=== PATIENT | female | born 1955 | race African-American/Black ===

== ENCOUNTER 2018-08-05 07:46 | Inpatient (IN) | payer MEDICARE, MEDICAID ==
[~2018-08-05] VITALS: Ht 152.4 cm; Wt 60.0 kg
[~2018-08-05 07:46] MED LIST: DONE10TA6 PO; GABA800T2 PO; HYDR-565 PO
[2018-08-05] MEDS ORDERED: normal saline 1000ML IV soln IVB ONE ×2 (07:55→09:10)
[2018-08-05] MEDS ORDERED: ondansetron/PF 4mg/2ml inj IV ONE (07:55)
[2018-08-05] MEDS: morphine 4 MG/ML inj SYRINge IV PRN ×3 (08:19→12:24)
[2018-08-05 09:04] LABS: ALANINE AMINOTRANSFERASE 65 U/L (12-78); ALBUMIN 4.3 G/DL (3.4-5.0); ALBUMIN/GLOBULIN RATIO 1.1 (1.1-1.5); ALKALINE PHOSPHATASE 96 IU/L (46-116); ANION GAP 17 (8-16); ASPARTATE AMINO TRANSFERASE 76 U/L (10-37); BILIRUBIN,TOTAL 0.6 MG/DL (0.1-1.0); BLOOD UREA NITROGEN 6 MG/DL (7-18); BUN/CREATININE RATIO 7.6 (6.6-38.0); CALCIUM 9.2 MG/DL (8.5-10.1); CHLORIDE 103 MMOL/L (99-107); CREATININE 0.79 MG/DL (0.40-0.90); GLUCOSE 175 MG/DL (70-104); LIPASE 137 U/L (73-393); POTASSIUM 3.1 MMOL/L (3.5-5.1); SODIUM 142 MMOL/L (135-145); TOTAL CARBON DIOXIDE 22.3 MMOL/L (24-32); TOTAL PROTEIN 8.3 G/DL (6.4-8.2); eGFR 89 ML/MIN
[2018-08-05] MEDS ORDERED: enoxaparin 100mg/ml syringe SUBCUT ONE (09:20)
[2018-08-05 09:36] LABS: BASOPHILS # (AUTO) 0.1 X10'3 (0-0.2); BASOPHILS % (AUTO) 1.1 % (0-1); EOSINOPHILS # (AUTO) 0.1 X10'3 (0-0.9); EOSINOPHILS % (AUTO) 1.1 % (0-6); HEMATOCRIT 49.4 % (35.0-45.0); HEMOGLOBIN 16.8 g/dl (12.0-16.0); LYMPHOCYTES # (AUTO) 2.7 X10'3 (1.1-4.8); LYMPHOCYTES % (AUTO) 41.4 % (21-51); MEAN CORPUSCULAR VOLUME 85.4 FL (78-98); MEAN PLATELET VOLUME 8.2 FL (7.4-10.4); MONOCYTES # (AUTO) 0.5 X10'3 (0-0.9); NEUTROPHILS # (AUTO) 3.2 X10'3 (1.8-7.7); NEUTROPHILS % (AUTO) 48.4 % (42-75); PLATELET COUNT 224 X10'3 (140-440); RED BLOOD COUNT 5.79 X10'6 (4.20-5.60); RED CELL DISTRIBUTION WIDTH 17.5 % (11.5-14.5); WHITE BLOOD COUNT 6.6 X10'3 (4.5-11.0)
[2018-08-05 09:39] LABS: D-DIMER 0.67 MG/L FEU (0-0.50); PROTHROMBIN TIME 9.9 SECONDS (9.0-12.0)
[2018-08-05] MEDS ORDERED: iohexol 350MG/ML 100ml bottle IV ONE (09:46)
[2018-08-05 09:53] LABS: TROPONIN I 0.12 NG/ML (0.0-0.05)
[2018-08-05 10:19] LABS: CLARITY,URINE CLEAR (Clear); COLOR,URINE YELLOW (Yellow); GLUCOSE, URINE NEGATIVE (Neg); KETONES,URINE TRACE mg/dl (Neg); LEUKOCYTE ESTERASE ,URINE NEGATIVE (Neg); NITRITES, URINE NEGATIVE (Neg); OCCULT BLOOD,URINE SMALL (Neg); PROTEIN,URINE 100 mg/dl (Neg); UROBILINOGEN,URINE 0.2 E.U/dL (0.2-1.0)
[2018-08-05 10:34] LABS: UA COLLECTION TYPE STRAIGHT CATH
[2018-08-05 10:49] LABS: SQUAMOUS EPITHELIAL CELL,UR MODERATE /LPF (FEW)
[2018-08-05 10:51] LABS: BACTERIA,URINE FEW /HPF (Neg); RBC,URINE 0-2 /HPF (0-2); WBC,URINE 0-4 /HPF (0-4)
[2018-08-05] MEDS ORDERED: ondansetron/PF 4mg/2ml inj IV STA (10:52)
[2018-08-05] MEDS ORDERED: metoprolol tartrate 1mg/ml inj IV ONE (11:15)
[2018-08-05] MEDS ORDERED: metoclopramide 5 mg/ml inj IV ONE (11:50)
[2018-08-05] MEDS ORDERED: diphenhydrAMINE 50 mg/ml inj IV ONE (11:50)
[2018-08-05] MEDS ORDERED: magnesium hydroxide 30ml (MOM) UD suspension PO PRN (12:05)
[2018-08-05] MEDS ORDERED: acetaminophen 325mg tablet PO PRN (12:05)
[2018-08-05] MEDS ORDERED: mag hydrox/Alum hydrox/simeth 30ml oral suspension PO PRN (12:05)
[2018-08-05] MEDS ORDERED: MEMA5TAB PO (12:14)
[2018-08-05] MEDS ORDERED: CLOP75TA35 PO (12:15)
[2018-08-05] MEDS ORDERED: ATOR20TA PO (12:16)
[2018-08-05] MEDS ORDERED: DULO-31 PO (12:17)
[2018-08-05] MEDS ORDERED: DONE10TA6 PO (12:17)
[2018-08-05] MEDS ORDERED: KEP500T PO (12:19)
[2018-08-05] MEDS ORDERED: LEVO50TA PO (12:20)
[2018-08-05] MEDS ORDERED: INSU100V5 IJ (12:26)
[2018-08-05] MEDS: hydrALAZINE 20mg/ml inj. IV PRN (12:26)
[2018-08-05] MEDS: cefepime 2g/NS 100ml ADVANTAGE 100 ML IV SCH ×2 (12:31→20:47)
[2018-08-05 13:10] LABS: URINE AMPHETAMINE SCREEN NEGATIVE (Neg); URINE BARBITUATE SCREEN NEGATIVE (Neg); URINE BENZODIAZEPINES SCREEN NEGATIVE (Neg); URINE CANNABINOID SCREEN NEGATIVE (Neg); URINE COCAINE SCREEN NEGATIVE (Neg); URINE METHADONE SCREEN NEGATIVE (Neg); URINE OPIATE SCREEN POSITIVE (Neg); URINE PHENCYCLIDINE SCREEN NEGATIVE (Neg)
[2018-08-05 14:00] VITALS: BP 136/74
[2018-08-05] MEDS: potassium Cl 20mEq in NS 1,000 ML IV SCH ×2 (14:02→22:05)
[2018-08-05] MEDS: morphine 2 MG/ML inj. syringe IV PRN (14:12)
[2018-08-05 15:00] VITALS: BP 181/66
[2018-08-05] MEDS ORDERED: dextrose 50%-water 50ml dispensing syringe IV PRN ×2 (18:40)
[2018-08-05] MEDS ORDERED: insulin Lispro (HumaLOG) vial - multi-dose SQ SCH (18:40)
[2018-08-05] MEDS ORDERED: glucagon, human recombinant 1mg kit SUBCUT PRN (18:40)
[2018-08-05] MEDS ORDERED: MESSAGE TO PHARMACY PO ONE (18:40)
[2018-08-05] MEDS ORDERED: dextrose ORAL solution 15 GM/59 ML bottle PO PRN ×2 (18:40)
[2018-08-05] MEDS ORDERED: potassium Cl 20 mEq SR tablet PO PRN (18:50)
[2018-08-05] MEDS ORDERED: potassium Cl 40MEQ/NS 500ml 500 ML IV PRN ×2 (18:50)
[2018-08-05] MEDS ORDERED: magnesium 4gm in 100ml NS 100 ML IV PRN (18:50)
[2018-08-05 19:00] VITALS: BP 154/101
[2018-08-05] MEDS: ondansetron/PF 4mg/2ml inj IV PRN (19:03)
[2018-08-05 19:35] LABS: ALBUMIN 4.1 G/DL (3.4-5.0); ANION GAP 12 (8-16); BLOOD UREA NITROGEN 6 MG/DL (7-18); BUN/CREATININE RATIO 6.6 (6.6-38.0); CALCIUM 8.3 MG/DL (8.5-10.1); CHLORIDE 101 MMOL/L (99-107); CREATININE 0.91 MG/DL (0.40-0.90); GLUCOSE 189 MG/DL (70-104); MAGNESIUM 1.2 MG/DL (1.5-2.4); SODIUM 140 MMOL/L (135-145); TOTAL CARBON DIOXIDE 26.8 MMOL/L (24-32); eGFR 75 ML/MIN
[2018-08-05 19:37] LABS: POTASSIUM 3.7 MMOL/L (3.5-5.1)
[2018-08-05 19:56] LABS: HEMOGLOBIN A1C 6.9 % (4.5-6.2)
[2018-08-05] MEDS ORDERED: non-formulary drug (Levetiracetam (Keppra) 1 TAB) PO SCH (20:00)
[2018-08-05] MEDS: memantine 5mg tablet PO SCH (20:47)
[2018-08-05] MEDS: LORazepam 2 mg/ml vial IV PRN (20:47)
[2018-08-05] MEDS: levetiracetam 250mg tablet PO SCH (20:48)
[2018-08-05] MEDS: magnesium Cl slow-release 64mg tablet PO PRN (20:48)
[2018-08-05] MEDS: heparin, porcine 5000 units/ml vial SQ SCH (20:49)
[2018-08-05] MEDS: atorvastatin 20mg tablet PO SCH (20:49)
[2018-08-05] MEDS: donepezil 5mg tablet PO SCH (20:49)
[2018-08-05] MEDS: insulin glargine (Lantus) pen - multi-dose SQ SCH (21:00)
[2018-08-05] MEDS ORDERED: non-formulary drug (Donepezil HCl (Aricept) 1 TAB) PO SCH (21:00)
[2018-08-05 23:00] VITALS: BP 122/84
[2018-08-06] MEDS: morphine 2 MG/ML inj. syringe IV PRN ×5 (01:32→21:08)
[2018-08-06] MEDS: ondansetron/PF 4mg/2ml inj IV PRN (01:41)
[2018-08-06] MEDS: hydrALAZINE 20mg/ml inj. IV PRN (02:27)
[2018-08-06 03:00] VITALS: BP 118/74
[2018-08-06] MEDS: LORazepam 2 mg/ml vial IV PRN ×3 (03:02→12:27)
[2018-08-06 05:56] LABS: BASOPHILS % (AUTO) 0.4 % (0-1); EOSINOPHILS # (AUTO) 0.1 X10'3 (0-0.9); EOSINOPHILS % (AUTO) 1.1 % (0-6); HEMATOCRIT 43.6 % (35.0-45.0); HEMOGLOBIN 14.8 g/dl (12.0-16.0); LYMPHOCYTES % (AUTO) 37.6 % (21-51); MEAN CORPUSCULAR HGB CONC 33.8 % (33.0-36.5); MEAN CORPUSCULAR VOLUME 85.6 FL (78-98); MEAN PLATELET VOLUME 8.7 FL (7.4-10.4); MONOCYTES # (AUTO) 0.7 X10'3 (0-0.9); MONOCYTES % (AUTO) 9.4 % (2-12); NEUTROPHILS # (AUTO) 4.1 X10'3 (1.8-7.7); NEUTROPHILS % (AUTO) 51.5 % (42-75); PLATELET COUNT 148 X10'3 (140-440); RED CELL DISTRIBUTION WIDTH 16.9 % (11.5-14.5)
[2018-08-06 06:01] LABS: ALBUMIN 3.1 G/DL (3.4-5.0); ANION GAP 7 (8-16); BLOOD UREA NITROGEN 5 MG/DL (7-18); BUN/CREATININE RATIO 6.6 (6.6-38.0); CALCIUM 7.7 MG/DL (8.5-10.1); CHLORIDE 103 MMOL/L (99-107); CREATININE 0.76 MG/DL (0.40-0.90); GLUCOSE 123 MG/DL (70-104); MAGNESIUM 1.2 MG/DL (1.5-2.4); SODIUM 138 MMOL/L (135-145); TOTAL CARBON DIOXIDE 27.8 MMOL/L (24-32); eGFR > 90 ML/MIN
[2018-08-06 07:00] VITALS: BP 162/72
[2018-08-06] MEDS: duloxetine 30mg CAPSULE.DR PO SCH (07:42)
[2018-08-06] MEDS: magnesium Cl slow-release 64mg tablet PO PRN ×2 (07:43→21:10)
[2018-08-06] MEDS: levoTHYROXINE 25mcg tablet PO SCH (07:44)
[2018-08-06] MEDS: memantine 5mg tablet PO SCH ×2 (07:45→21:10)
[2018-08-06] MEDS: clopidogrel 75mg tablet PO SCH (07:46)
[2018-08-06] MEDS: levetiracetam 250mg tablet PO SCH ×2 (07:47→21:10)
[2018-08-06] MEDS: potassium Cl 20 mEq SR tablet PO PRN ×3 (07:48→21:11)
[2018-08-06] MEDS: cefepime 2g/NS 100ml ADVANTAGE 100 ML IV SCH ×2 (07:54→21:11)
[2018-08-06] MEDS: heparin, porcine 5000 units/ml vial SQ SCH ×2 (07:54→21:09)
[2018-08-06] MEDS ORDERED: non-formulary drug (Levothyroxine Sodium (Synthroid) 1 TAB) PO SCH (08:00)
[2018-08-06] MEDS: potassium Cl 20mEq in NS 1,000 ML IV SCH ×2 (09:00→12:29)
[2018-08-06 09:16] LABS: TROPONIN I 0.15 NG/ML (0.0-0.05)
[2018-08-06] MEDS: [UNRECOGNIZED DRUG - REMARK] PO NR (10:00)
[2018-08-06 11:00] VITALS: BP 143/74
[2018-08-06] MEDS ORDERED: thiamine inj. 100 MG in normal saline 100ml IV soln 100 ML IV ONE (11:35)
[2018-08-06] MEDS ORDERED: folic acid inj. 2 MG, thiamine inj. 100 MG, MVI, adult No.4 with vit. K 10 ML in dextro... IV SCH ×4 (11:35)
[2018-08-06] MEDS: gabapentin 400mg capsule PO SCH (15:42)
[2018-08-06 19:00] VITALS: BP 162/102
[2018-08-06] MEDS: insulin glargine (Lantus) pen - multi-dose SQ SCH (21:00)
[2018-08-06] MEDS: atorvastatin 20mg tablet PO SCH (21:10)
[2018-08-06] MEDS: donepezil 5mg tablet PO SCH (21:10)
[2018-08-06] MEDS: nortriptyline 10mg capsule PO SCH (21:26)
[2018-08-06 23:00] VITALS: BP 163/108
[2018-08-07] MEDS: morphine 2 MG/ML inj. syringe IV PRN ×5 (01:18→21:17)
[2018-08-07] MEDS: hydrALAZINE 20mg/ml inj. IV PRN (01:18)
[2018-08-07] MEDS: gabapentin 400mg capsule PO SCH ×3 (01:18→17:01)
[2018-08-07 03:00] VITALS: BP 126/92
[2018-08-07] MEDS: potassium Cl 20mEq in NS 1,000 ML IV SCH ×2 (04:05→12:38)
[2018-08-07 06:00] VITALS: BP 149/95
[2018-08-07 06:01] LABS: PROTHROMBIN TIME 10.1 SECONDS (9.0-12.0)
[2018-08-07 06:05] LABS: BASOPHILS % (AUTO) 0.4 % (0-1); EOSINOPHILS # (AUTO) 0.2 X10'3 (0-0.9); EOSINOPHILS % (AUTO) 2.9 % (0-6); HEMATOCRIT 45.5 % (35.0-45.0); HEMOGLOBIN 15.3 g/dl (12.0-16.0); LYMPHOCYTES # (AUTO) 2.7 X10'3 (1.1-4.8); LYMPHOCYTES % (AUTO) 36.2 % (21-51); MEAN CORPUSCULAR HEMOGLOBIN 28.8 PG (27.0-31.0); MEAN CORPUSCULAR HGB CONC 33.7 % (33.0-36.5); MEAN CORPUSCULAR VOLUME 85.4 FL (78-98); MONOCYTES # (AUTO) 0.5 X10'3 (0-0.9); MONOCYTES % (AUTO) 6.3 % (2-12); NEUTROPHILS # (AUTO) 4.1 X10'3 (1.8-7.7); NEUTROPHILS % (AUTO) 54.2 % (42-75); PLATELET COUNT 137 X10'3 (140-440); RED BLOOD COUNT 5.33 X10'6 (4.20-5.60); RED CELL DISTRIBUTION WIDTH 16.4 % (11.5-14.5); WHITE BLOOD COUNT 7.5 X10'3 (4.5-11.0)
[2018-08-07 06:27] LABS: ALANINE AMINOTRANSFERASE 59 U/L (12-78); ALBUMIN 3.2 G/DL (3.4-5.0); ALBUMIN/GLOBULIN RATIO 0.8 (1.1-1.5); ALKALINE PHOSPHATASE 82 IU/L (46-116); AMYLASE 46 U/L (25-115); ANION GAP 7 (8-16); ASPARTATE AMINO TRANSFERASE 87 U/L (10-37); BILIRUBIN,TOTAL 0.7 MG/DL (0.1-1.0); BLOOD UREA NITROGEN 5 MG/DL (7-18); BUN/CREATININE RATIO 7.9 (6.6-38.0); CALCIUM 8.1 MG/DL (8.5-10.1); CHLORIDE 102 MMOL/L (99-107); CREATININE 0.63 MG/DL (0.40-0.90); GLUCOSE 117 MG/DL (70-104); LIPASE 147 U/L (73-393); MAGNESIUM 1.4 MG/DL (1.5-2.4); PHOSPHORUS 1.5 MG/DL (2.3-4.5); POTASSIUM 4.3 MMOL/L (3.5-5.1); SODIUM 136 MMOL/L (135-145); TOTAL CARBON DIOXIDE 26.6 MMOL/L (24-32); TOTAL PROTEIN 7.2 G/DL (6.4-8.2); eGFR > 90 ML/MIN
[2018-08-07] MEDS: memantine 5mg tablet PO SCH ×2 (07:55→21:15)
[2018-08-07] MEDS: cefepime 2g/NS 100ml ADVANTAGE 100 ML IV SCH (07:55)
[2018-08-07] MEDS: clopidogrel 75mg tablet PO SCH (07:56)
[2018-08-07] MEDS: levoTHYROXINE 25mcg tablet PO SCH (07:56)
[2018-08-07] MEDS: levetiracetam 250mg tablet PO SCH ×2 (07:56→21:14)
[2018-08-07] MEDS: duloxetine 30mg CAPSULE.DR PO SCH (07:56)
[2018-08-07] MEDS: magnesium Cl slow-release 64mg tablet PO PRN (07:56)
[2018-08-07] MEDS: heparin, porcine 5000 units/ml vial SQ SCH ×2 (07:57→21:14)
[2018-08-07] MEDS: [UNRECOGNIZED DRUG - REMARK] PO NR (10:00)
[2018-08-07 11:00] VITALS: BP 99/78
[2018-08-07] MEDS: thiamine 100mg tablet PO SCH (12:33)
[2018-08-07] MEDS: folic acid 1mg tablet PO SCH ×2 (12:34→21:14)
[2018-08-07] MEDS: multivitamins, therapeutics tablet PO SCH (12:34)
[2018-08-07 15:00] VITALS: BP 137/56
[2018-08-07] MEDS ORDERED: CAFFEINE CITRATE 60 MG/3 ML injection vial IV PRN (16:00)
[2018-08-07] MEDS ORDERED: sodium phosphate inj. 15 MMOL in dextrose 5%-water 150 ML IV ONE (16:00)
[2018-08-07] MEDS ORDERED: nitroGLYCERIN 0.4mg SUBLingual tab SL PRN ×2 (16:00→16:05)
[2018-08-07] MEDS ORDERED: regadenoson 0.4mg/5ml syringe IV PRN (16:00)
[2018-08-07] MEDS ORDERED: metoprolol tartrate 1mg/ml inj IV PRN (16:00)
[2018-08-07] MEDS: pantoprazole 40 MG vial IV SCH (17:01)
[2018-08-07 19:00] VITALS: BP 185/76
[2018-08-07] MEDS: insulin glargine (Lantus) pen - multi-dose SQ SCH (21:00)
[2018-08-07] MEDS: Neutra Phos packet PO SCH (21:12)
[2018-08-07] MEDS: donepezil 5mg tablet PO SCH (21:12)
[2018-08-07] MEDS: nortriptyline 10mg capsule PO SCH (21:15)
[2018-08-07] MEDS: lactobacillus rhamnosus 10,000 MMU CELLS/CAPSULE PO SCH (21:15)
[2018-08-07] MEDS: atorvastatin 20mg tablet PO SCH (21:15)
[2018-08-07] MEDS: metoprolol tartrate 25mg tablet PO SCH (21:15)
[2018-08-07 23:00] VITALS: BP 146/100
[2018-08-08] VITALS (13 sets, daily range): BP systolic 95–155; BP diastolic 70–110
[2018-08-08] MEDS: gabapentin 400mg capsule PO SCH ×3 (02:25→16:14)
[2018-08-08] MEDS: morphine 2 MG/ML inj. syringe IV PRN ×4 (02:25→16:13)
[2018-08-08] MEDS: potassium Cl 20mEq in NS 1,000 ML IV SCH (03:46)
[2018-08-08 05:04] LABS: BASOPHILS % (AUTO) 0.4 % (0-1); EOSINOPHILS # (AUTO) 0.3 X10'3 (0-0.9); EOSINOPHILS % (AUTO) 3.6 % (0-6); HEMATOCRIT 42.8 % (35.0-45.0); HEMOGLOBIN 14.6 g/dl (12.0-16.0); LYMPHOCYTES # (AUTO) 2.1 X10'3 (1.1-4.8); LYMPHOCYTES % (AUTO) 29.1 % (21-51); MEAN CORPUSCULAR HEMOGLOBIN 28.8 PG (27.0-31.0); MEAN CORPUSCULAR VOLUME 84.6 FL (78-98); MEAN PLATELET VOLUME 9.6 FL (7.4-10.4); MONOCYTES # (AUTO) 0.4 X10'3 (0-0.9); MONOCYTES % (AUTO) 5.6 % (2-12); NEUTROPHILS # (AUTO) 4.4 X10'3 (1.8-7.7); NEUTROPHILS % (AUTO) 61.3 % (42-75); PLATELET COUNT 120 X10'3 (140-440); RED BLOOD COUNT 5.07 X10'6 (4.20-5.60); RED CELL DISTRIBUTION WIDTH 16.1 % (11.5-14.5); WHITE BLOOD COUNT 7.1 X10'3 (4.5-11.0)
[2018-08-08 05:22] LABS: PROTHROMBIN TIME 9.9 SECONDS (9.0-12.0)
[2018-08-08 05:37] LABS: ALANINE AMINOTRANSFERASE 64 U/L (12-78); ALBUMIN 3.1 G/DL (3.4-5.0); ALBUMIN/GLOBULIN RATIO 0.8 (1.1-1.5); ALKALINE PHOSPHATASE 78 IU/L (46-116); AMYLASE 42 U/L (25-115); ANION GAP 9 (8-16); ASPARTATE AMINO TRANSFERASE 73 U/L (10-37); BILIRUBIN,TOTAL 0.7 MG/DL (0.1-1.0); BLOOD UREA NITROGEN 6 MG/DL (7-18); BUN/CREATININE RATIO 9.7 (6.6-38.0); CALCIUM 8.5 MG/DL (8.5-10.1); CHLORIDE 101 MMOL/L (99-107); CREATININE 0.62 MG/DL (0.40-0.90); GLUCOSE 133 MG/DL (70-104); LIPASE 151 U/L (73-393); MAGNESIUM 1.6 MG/DL (1.5-2.4); PHOSPHORUS 3.5 MG/DL (2.3-4.5); POTASSIUM 3.9 MMOL/L (3.5-5.1); SODIUM 136 MMOL/L (135-145); TOTAL CARBON DIOXIDE 26.2 MMOL/L (24-32); eGFR > 90 ML/MIN
[2018-08-08] MEDS: metoprolol tartrate 25mg tablet PO SCH (07:28)
[2018-08-08] MEDS: multivitamins, therapeutics tablet PO SCH (07:28)
[2018-08-08] MEDS: clopidogrel 75mg tablet PO SCH (07:28)
[2018-08-08] MEDS: levetiracetam 250mg tablet PO SCH (07:28)
[2018-08-08] MEDS: folic acid 1mg tablet PO SCH (07:28)
[2018-08-08] MEDS: lactobacillus rhamnosus 10,000 MMU CELLS/CAPSULE PO SCH (07:29)
[2018-08-08] MEDS: memantine 5mg tablet PO SCH (07:29)
[2018-08-08] MEDS: thiamine 100mg tablet PO SCH (07:29)
[2018-08-08] MEDS: pantoprazole 40 MG vial IV SCH (07:29)
[2018-08-08] MEDS: duloxetine 30mg CAPSULE.DR PO SCH (07:29)
[2018-08-08] MEDS: heparin, porcine 5000 units/ml vial SQ SCH (07:30)
[2018-08-08] MEDS: Neutra Phos packet PO SCH ×2 (07:30→13:00)
[2018-08-08] MEDS: levoTHYROXINE 25mcg tablet PO SCH (07:31)
[2018-08-08] MEDS ORDERED: CAFFEINE CITRATE 60 MG/3 ML injection vial IV ONE (08:50)
[2018-08-08] MEDS ORDERED: regadenoson 0.4mg/5ml syringe IV ONE ×2 (08:50)
[2018-08-08] MEDS ORDERED: NORT10CA2 PO (13:03)
[2018-08-08] MEDS ORDERED: METO25TA6 PO (13:03)
[2018-08-08] MEDS ORDERED: FOLI1TAB16 PO (13:03)
[2018-08-08] MEDS ORDERED: THI100T PO (13:03)
[2018-08-08] MEDS ORDERED: PANT-47 PO (13:03)
[2018-08-08] MEDS ORDERED: GABA-534 PO (13:03)
[2018-08-08] MEDS ORDERED: INSU100V5 SQ (16:39)
== END 2018-08-08 17:19 | disposition home or self-care (01) | DRG 391 ==
LOC: ER 07:47 → PCU 3S 13:41
PROVIDERS: ADMIT Family Medicine; ATTEND Internal Medicine
PROC: B32T1ZZ Computerized Tomography (CT Scan) of Left Pulmonary Artery using Low Osmolar Contrast (ICD-10-PCS; 2018-08-05)
PROC: B3201ZZ Computerized Tomography (CT Scan) of Thoracic Aorta using Low Osmolar Contrast (ICD-10-PCS; 2018-08-05)
PROC: B32S1ZZ Computerized Tomography (CT Scan) of Right Pulmonary Artery using Low Osmolar Contrast (ICD-10-PCS; 2018-08-05)
PROC: 4A02XM4 Measurement of Cardiac Total Activity, External Approach (ICD-10-PCS; principal; 2018-08-08)
PROC: 3E033HZ Introduction of Radioactive Substance into Peripheral Vein, Percutaneous Approach (ICD-10-PCS; 2018-08-08)
DX: K29.20 Alcoholic gastritis without bleeding (principal); I21.A1 Myocardial infarction type 2; I16.1 Hypertensive emergency; E87.6 Hypokalemia; E11.51 Type 2 diabetes mellitus with diabetic peripheral angiopathy without gangrene; E78.5 Hyperlipidemia, unspecified; E83.39 Other disorders of phosphorus metabolism; E83.42 Hypomagnesemia; F17.210 Nicotine dependence, cigarettes, uncomplicated; G89.4 Chronic pain syndrome; I10 Essential (primary) hypertension; I25.10 Atherosclerotic heart disease of native coronary artery without angina pectoris; J44.9 Chronic obstructive pulmonary disease, unspecified; F10.20 Alcohol dependence, uncomplicated; K42.9 Umbilical hernia without obstruction or gangrene; K76.0 Fatty (change of) liver, not elsewhere classified; Z89.611 Acquired absence of right leg above knee; Z89.612 Acquired absence of left leg above knee; Z90.49 Acquired absence of other specified parts of digestive tract; Z95.820 Peripheral vascular angioplasty status with implants and grafts; Z99.3 Dependence on wheelchair; Z91.19 Patient's noncompliance with other medical treatment and regimen; Z88.0 Allergy status to penicillin; Z88.8 Allergy status to other drugs, medicaments and biological substances; Z79.899 Other long term (current) drug therapy; Z79.4 Long term (current) use of insulin; Z86.711 Personal history of pulmonary embolism; Z71.41 Alcohol abuse counseling and surveillance of alcoholic
CPT/HCPCS: 36415; 71045; 71275; 74176; 78452; 80048; 80053; 80305; 81001; 82150; 82948; 83036; 83605; 83690; 83735; 83880; 84100; 84145; 84443; 84484; 85025; 85379; 85610; 87040; 87070; 93005; 93017; 93306; 96361; 96374; 96375; 96376; 97162; 97530; 99285; A4353; A6258; A9500; C9113; J0360; J0692; J1200; J1644; J1650; J1815; J2060; J2270; J2405; J2765; J3411; J3480; J3490; J7030; J7060; Q9967